=== PATIENT | male | born 1985 | race Caucasian/White ===

== ENCOUNTER 2023-06-03 22:32 | Emergency (ER) | payer SELFPAY ==
[2023-06-03 22:54] VITALS: BP 133/83; PULSE 87; RESP 16; TEMP 36.7; O2SAT 99
--- NOTE | 2023-06-04 00:43 | PC.NURSE ---
patient reports that his pain is now better and left from triage area
== END 2023-06-04 01:34 | disposition left against medical advice (07) ==
LOC: ANHED 06-04 00:52
PROVIDERS: PCP Internal Medicine
DX: S39.94XA Unspecified injury of external genitals, initial encounter (principal)
CPT/HCPCS: 99199